=== PATIENT | female | born 1990 | race Caucasian/White ===

== ENCOUNTER 2021-03-08 21:09 | Emergency (ER) | payer SELFPAY ==
[~2021-03-08] VITALS: Ht 154.9 cm; Wt 91.2 kg
[2021-03-08 21:17] VITALS: BP 127/76
[2021-03-08] MEDS ORDERED: HYDROcodone/APAP 5/325 MG 1 TAB TAB PO ONE (21:50)
[2021-03-08] MEDS ORDERED: ONDANSETRON 4 MG ODT PO ONE (22:35)
[2021-03-08] MEDS ORDERED: KETOROLAC 30 MG/ML VIAL IM ONE (22:35)
[2021-03-08] MEDS ORDERED: IBUP-2213 PO (23:38)
[2021-03-08 23:55] VITALS: BP 127/76
== END 2021-03-08 23:55 | disposition home or self-care (01) ==
LOC: MED 21:09
DX: R10.2 Pelvic and perineal pain (principal); R11.0 Nausea
CPT/HCPCS: 76830; 81002; 81025; 96372; 99284; J1885; Q0162

== ENCOUNTER 2021-09-30 12:15 | Emergency (ER) | payer OTHER ==
[~2021-09-30] VITALS: Ht 149.9 cm; Wt 89.8 kg
[~2021-09-30 12:15] MED LIST: IBUP-2213 PO
[2021-09-30 12:21] VITALS: BP 113/66
--- NOTE | 2021-09-30 12:59 | NUR ---
PT WHEELCHAIR ASSIST TO 10
[2021-09-30] MEDS ORDERED: IBUP-2218 PO (13:06)
--- NOTE | 2021-09-30 13:19 | NUR ---
PER [facility] PT RIGHT KNEE WAS WRAPPED IN AN GURINDER WRAP AND PT WAS GIVEN CRUTCHES. PT WAS ALSO TAUGHT HOW TO USE CRUTCHES.
--- NOTE | 2021-09-30 13:26 | NUR ---
Patient discharged with v/s stable. Written and verbal after care instructions given and explained. Patient alert, oriented and verbalized understanding of instructions. Ambulatory with CRUTCHES to car. All questions addressed prior to discharge. ID band removed. Patient advised to follow up with PMD. Rx of IBUPROFEN given. Patient educated on indication of medication including possible reaction and side effects. Opportunity to ask questions provided and answered.
[2021-09-30 13:27] VITALS: BP 113/66
== END 2021-09-30 13:27 | disposition home or self-care (01) ==
LOC: MED 12:15
DX: S83.91XA Sprain of unspecified site of right knee, initial encounter (principal); Z79.1 Long term (current) use of non-steroidal anti-inflammatories (NSAID); W10.8XXA Fall (on) (from) other stairs and steps, initial encounter; Y92.89 Other specified places as the place of occurrence of the external cause; Y93.01 Activity, walking, marching and hiking; Y99.8 Other external cause status
CPT/HCPCS: 73562; 99283

== ENCOUNTER 2022-04-01 15:50 | Emergency (ER) | payer OTHER ==
[~2022-04-01] VITALS: Ht 149.9 cm; Wt 93.4 kg
[~2022-04-01 15:50] MED LIST changes: +IBUP-2218 PO
--- NOTE | 2022-04-01 15:56 | NUR ---
PT AMBULATED TO BED 08.
[2022-04-01 15:57] VITALS: BP 128/92
--- NOTE | 2022-04-01 16:13 | NUR ---
CHRISTOPHER Reeder at bedside evaluating patient.
--- NOTE | 2022-04-01 16:13 | NUR ---
31 y/o female c/o headache x1.5 weeks. Patient has pain to head, bilateral ears and jaw. Patient denies trauma or injury. Patient has a throbbing 10/10 pain. Patient has nausea and vomiting. Patient has light sensitivity. Medical history: Denies NKDA
[2022-04-01] MEDS ORDERED: ACETAMINOPHEN EXTRA STRENGTH 500 MG TAB PO ONE (16:25)
[2022-04-01] MEDS ORDERED: PROCHLORPERAZINE 10 MG/2 ML VIAL IM ONE (16:25)
[2022-04-01] MEDS ORDERED: KETOROLAC 30 MG/ML VIAL IM ONE (17:15)
[2022-04-01] MEDS ORDERED: ACET-10509 PO (17:46)
[2022-04-01 17:51] VITALS: BP 122/88
== END 2022-04-01 17:53 | disposition home or self-care (01) ==
LOC: MED 15:50
DX: R51.9 Headache, unspecified (principal); H53.149 Visual discomfort, unspecified; R11.2 Nausea with vomiting, unspecified; Z79.899 Other long term (current) drug therapy
CPT/HCPCS: 81002; 81025; 96372; 99284; J0780; J1885